=== PATIENT | female | born 1955 | race Caucasian/White ===

== ENCOUNTER 2021-06-14 10:15 | Emergency (ER) | payer MEDICARE, BC ==
[~2021-06-14] VITALS: Ht 154.9 cm; Wt 53.0 kg
[~2021-06-14 10:15] MED LIST: ACYCLOVIR800 MG PO; CRESTOR5 MG; LORTAB 5 OR; LOSARTAN POT25 MG PO; LOSARTAN POT50 MG PO; METOPROLOL50 M1 PO; MUPIROCIN2 % EX; TRIAMCINOLON0.11 EX
[2021-06-14 11:35] VITALS: BP 184/92
[2021-06-14 12:00] VITALS: BP 171/81
[2021-06-14 13:05] VITALS: BP 167/85
== END 2021-06-14 13:05 | disposition home or self-care (01) ==
LOC: ED 10:15
PROC: 0HQFXZZ Repair Right Hand Skin, External Approach (ICD-10-PCS; principal; 2021-06-14)
DX: S61.011A Laceration without foreign body of right thumb without damage to nail, initial encounter (principal); I10 Essential (primary) hypertension; E78.5 Hyperlipidemia, unspecified; W26.8XXA Contact with other sharp object(s), not elsewhere classified, initial encounter; Y93.89 Activity, other specified